=== PATIENT | male | born 1950 | race Caucasian/White ===

== ENCOUNTER → 2019-06-21 | Outpatient (CLI) | payer OTHER, MEDICARE ==
[~2019-06-21] MED LIST: ASA81BEC PO; GLUMETZA500 PO; LANTUSSOLASTAR SUBQ; MITIGARE0.6 MG PO; PRINIVIL5 MG PO; ROSUVASTATIN CA20 MG PO; SINGULAIR 10 MG10 M1 PO; ULORIC40 MG PO; VICTOZA 3-0.6 MG/0.1 SUBQ
== END ==
LOC: SJCVC 14:21
DX: Z01.810 Encounter for preprocedural cardiovascular examination (principal); R94.31 Abnormal electrocardiogram [ECG] [EKG]; I44.7 Left bundle-branch block, unspecified; I44.0 Atrioventricular block, first degree; E11.9 Type 2 diabetes mellitus without complications; J32.9 Chronic sinusitis, unspecified; E78.00 Pure hypercholesterolemia, unspecified; Z79.4 Long term (current) use of insulin; Z79.899 Other long term (current) drug therapy

== ENCOUNTER → 2019-06-30 | Outpatient (CLI) | payer OTHER, MEDICARE | END | disposition home or self-care (01) | LOC: SJCVCIMAG 07:32 | DX: Z01.810 Encounter for preprocedural cardiovascular examination (principal); I34.0 Nonrheumatic mitral (valve) insufficiency; I44.7 Left bundle-branch block, unspecified; I44.0 Atrioventricular block, first degree; E11.9 Type 2 diabetes mellitus without complications; Z79.899 Other long term (current) drug therapy; Z79.4 Long term (current) use of insulin ==

== ENCOUNTER 2019-07-05 07:56 | Inpatient (IN) | payer OTHER, MEDICARE ==
[~2019-07-05] VITALS: Ht 177.8 cm; Wt 97.5 kg
[2019-07-05 08:22] LABS: HEMATOCRIT 44.9 % (42.0-52.0); HEMOGLOBIN 14.7 gm/dL (14.0-18.0); MCH 30.1 pg (26.0-34.0); MCHC 32.7 g/dL (28.0-37.0); MCV 92.1 fL (80.0-100.0); PLATELET COUNT 255 thou/uL (150-400); RBC 4.87 mil/uL (4.50-6.00); RDW 13.4 % (10.5-14.5); WBC 6.1 thou/uL (4.0-11.0)
[2019-07-05 08:36] VITALS: BP 120/70
[2019-07-05 08:53] LABS: CHOLESTEROL 163 mg/dL (<200); HDL CHOLESTEROL 44 mg/dL (>40); LDL CHOLESTEROL 96 mg/dL (<100); TC:HDL 3.7 Ratio (Not establshd); TRIGLYCERIDE 117 mg/dL (<150); VLDL 23 mg/dL (<40)
[2019-07-05] MEDS ORDERED: MITIGARE0.6 MG PO (09:20)
[2019-07-05] MEDS ORDERED: ASA81BEC PO (09:21)
[2019-07-05] MEDS ORDERED: ULORIC40 MG PO (09:21)
[2019-07-05] MEDS ORDERED: LANTUSSOLASTAR SUBQ (09:24)
[2019-07-05] MEDS ORDERED: VICTOZA 3-0.6 MG/0.1 SUBQ (09:25)
[2019-07-05] MEDS ORDERED: PRINIVIL5 MG PO (09:26)
[2019-07-05] MEDS ORDERED: GLUMETZA500 PO (09:27)
[2019-07-05] MEDS ORDERED: SINGULAIR 10 MG10 M1 PO (09:27)
[2019-07-05] MEDS ORDERED: ROSUVASTATIN CA20 MG PO (09:28)
[2019-07-05 11:43] LABS: CALCIUM 9.1 mg/dL (8.5-10.1); CREATININE 1.3 mg/dL (0.7-1.3); POTASSIUM 4.8 mmol/L (3.5-5.1)
[2019-07-05 11:46] LABS: LYMPHOCYTES 37.1 % (24.0-44.0); MONOCYTES 8.4 % (1.0-8.0); POLYS 49.8 % (36.0-66.0)
[2019-07-05 11:47] LABS: BASOPHILS 0.5 % (0.0-2.0); EOSINOPHILS 4.2 % (0.0-3.0)
[2019-07-05 11:50] LABS: TOTAL BILIRUBIN 0.5 mg/dL (<0.1-1.0); TOTAL PROTEIN 7.6 g/dL (6.4-8.2)
[2019-07-05 11:55] LABS: APTT 26.9 Seconds (24.5-32.8); PROTIME 10.3 Seconds (9.3-11.4)
[2019-07-05 13:50] VITALS: BP 149/73
[2019-07-05 15:13] VITALS: BP 149/73
--- NOTE | 2019-07-05 15:29 | CATHLAB ---
[facility] [place] [address] INVASIVE PROCEDURE REPORT Name: MONICA ANDERSON Room #: 204-P ADM IN M.R.#: [id number] Admission: 07/05/19 Attend Phys: Ady Choi MD Discharge: Date of : 48 Report #: [id number] THIS REPORT FOR: cc: Lakia Ramirez MD, Stephanie M. MD Park, Jin S. MD ~ APPROVED REPORT Study performed: 07/05/2019 09:24:16 Patient Details Patient Status: Out-Patient Room #: The patient is a 69 year-old male Event Personnel Ady Choi [employer] Torque Tester, Larry Hodgson RN, Priya Salazar RTR, [employer] Monitor, Sravani Rome RTR Scrub Procedures Performed Art Access - R femoral artery* Left Heart Cath w/or w/o Coronaries 6648021 C 01128 Initial Mod Sed Same Phys/QHP Gr 516543 Hemostasis with Manual pressure 15182 Mod Sed Same Phys/QHP Ea 429328 Indication Positive stress test, Pre-op clearance Risk Factors Hypercholesterolemia, Hypertension, Diabetes Procedure Narrative The Right Groin^ was infiltrated with 1% Lidocaine subcutaneous anesthesia. A PINNACLE 4FR Sheath #[id number] sheath was inserted into the RFA^. Coronary angiography was performed using coronary diagnostic catheters. The right coronary system was accessed and visualized with a JR4 catheter. The left coronary system was accessed and visualized with a JL5 catheter. The left ventricle was accessed and visualized with a angled pigtail catheter. Left ventricular/Aortic Valve gradient assessed via catheter pullback. Left ventriculogram was performed in 30 degree projection. Hemostasis was obtained with manual pressure following sheath removal without any complications. The patient tolerated the procedure well and there were no complications associated with the procedure. There was no hematoma. [facility] [address] [place] [address] INVASIVE PROCEDURE REPORT Name: MONICAMONICA Room #: 204-P [facility] IN ..#: [id number] Admission: 07/05/19 Attend Phys: Ady Choi MD Discharge: Date of : 48 Report #: [id number] Intraoperative Conscious Sedation Sedation start time: 10:09 Case end Time: 10:42 Fentanyl 50 mcg Versed 2 mg Fluoro Time: 4.50 minutes Dose: DAP 6394 cGycm2 1538 mGy Contrast Type and Amount: Visipaque 105 ml Coronary Angiography The patient's coronary anatomy is co- dominant. Diagnostic Cath Left Main The left main artery is a large-caliber vessel with moderate disease distally, 50%. LAD There is a severe occlusion in the proximal/mid LAD, just after the takeoff of the first diagonal artery. There is a filling defect within the severe occlusion. After the stenosis, the mid and distal segments of the LAD is patent with no flow-limiting lesions. Diagonal 1 This is a moderate size caliber vessel with a severe proximal stenosis, 90%. Circumflex This is a codominant vessel with a severe occlusion at the ostium, 90%. Fills a moderate size OM vessel. There is a total occlusion in the mid left circumflex artery. OM1 This is a moderate size caliber vessel, patent with no flow-limiting lesion. OM2 This vessel is filled via bridging collaterals. Right Coronary There is a total occlusion in the proximal RCA. R PDA This vessel is filled via collateral circulation from the left coronary artery. Left Ventriculography The left ventricle is mildly dilated in size with decreased contractility. The left ventricular ejection fraction is estimated to be 40-45%. Left ventricular wall motion abnormalities are present. Hemodynamics The aortic pressure is 102/68 mmHg with a mean of 86 mmHg. The left ventricular pressure is 113/3 mmHg with a mean of mmHg. The left ventricular end diastolic pressure is 11 mmHg. Conclusion 1. Severe multivessel coronary artery disease. [facility] [address] [place] [address] INVASIVE PROCEDURE REPORT Name: MONICA ANDERSON Room #: 204-P [facility] IN .R.#: [id number] Admission: 07/05/19 Attend Phys: Ady Choi MD Discharge: Date of : 48 Report #: [id number] 2. Mild to moderate segmental LV dysfunction. 3. Recommend CV surgery consultation for CABG. <ELECTRONICALLY SIGNED> By: Ady Choi MD 07/05/19 1528 1528 1528 Ady Choi MD /INF
[2019-07-05 18:03] VITALS: BP 107/54
--- NOTE | 2019-07-05 18:19 | NUR ---
PT CARE ASSUMED APPROXIMATELY 1330. PT ASSESSMENTS CHARTED. PT ORIENTED TO HIS OWN ABILITY. PT DENIES PAIN.
[2019-07-05 20:12] VITALS: BP 114/58
[2019-07-05 20:20] LABS: URINE BILIRUBIN NEGATIVE (Negative); URINE BLOOD NEGATIVE (Negative); URINE CLARITY CLEAR; URINE COLOR YELLOW; URINE GLUCOSE-RANDOM* NEGATIVE (Negative); URINE KETONES NEGATIVE (Negative); URINE LEUKOCYTES-REFLEX NEGATIVE (Negative); URINE NITRITE-REFLEX NEGATIVE (Negative); URINE PROTEIN (DIPSTICK) NEGATIVE (Negative); URINE UROBILINOGEN 0.2 E.U./dl (0.2-1.0)
[2019-07-05 23:10] LABS: GLYCOHEMOGLOBIN (HGB A1C) 7.4 % (4.8-5.6)
[2019-07-06] VITALS (8 sets, daily range): BP systolic 103–135; BP diastolic 68–77
--- NOTE | 2019-07-06 04:38 | NUR ---
PT ALERT AND ORIENTED. DENIES CHEST PAIN,NAUSEA, VOMITING OR DIARRHEA. PT CONCERNED ABOUT HIS MEDICATION REGIMEN WHILE HERE AT THE HOSPITAL, AND WOULD LIKE MORE CLARIFICATION FROM THE DOCTORS. INDEPENDENT WITH AMBULATION, SR, WITH 1AVB, &BBB. NO OTHER ARRYTHMIAS NOTED. WILL CONTINUE TO FOLLOW POC AND PT AWAITS THE PENDING SURGERY.
[2019-07-06 05:52] LABS: HEMATOCRIT 39.5 % (42.0-52.0); MCH 30.1 pg (26.0-34.0); MCHC 32.9 g/dL (28.0-37.0); MCV 91.7 fL (80.0-100.0); RBC 4.31 mil/uL (4.50-6.00); RDW 13.4 % (10.5-14.5); WBC 6.2 thou/uL (4.0-11.0)
[2019-07-06 06:41] LABS: CALCIUM 8.6 mg/dL (8.5-10.1); CREATININE 1.3 mg/dL (0.7-1.3); POTASSIUM 4.3 mmol/L (3.5-5.1)
--- NOTE | 2019-07-06 08:15 | HC ---
[facility] [place] [address] CONSULTATION Name: MONICA ANDERSON Room #: 204-P [facility] IN M.R.#: [id number] Admission: 07/05/19 Attend Phys: Ady Choi MD Discharge: Date of : 48 Report #: [id number] THIS REPORT FOR: cc: Lakia Ramirez MD, Stephanie M. MD Forman, John M. MD ~ CC: Ady Ramirez DATE OF SERVICE: 07/05/2019 We were asked by Dr. Choi to see the patient. HISTORY OF PRESENT ILLNESS: The patient is a 69-year-old with coronary artery disease. The patient was scheduled for sinus surgery and preoperative evaluation included an EKG that showed a left bundle branch block. This led to a stress test at which the patient had an asystolic event and then cardiac catheterization that shows severe 3-vessel coronary artery disease, but good ventricular function. The patient denies such problems as angina or shortness of breath and claims that he is not sedentary and has had no symptoms. PAST MEDICAL HISTORY: Significant for diabetes mellitus and gout, for which the patient takes medication. ALLERGIES: None known. SOCIAL HISTORY: The patient is retired. He is not a smoker. REVIEW OF SYSTEMS: GENERAL: No fever or chills. EYES: Wears glasses. HEENT: Sinus problems as mentioned. RESPIRATORY: No shortness of breath. CARDIAC: No chest pain, no palpitations. We do note the asystolic event at the Lexiscan. GASTROINTESTINAL: No nausea, vomiting, blood. GENITOURINARY: No urgency, frequency, blood. MUSCULOSKELETAL: Has had back surgery in the past, but denies bone and joint discomfort. NEUROLOGIC: Left foot drop, status post back surgery. No new neurologic dysfunction. SKIN: No rash or infection. PSYCHIATRIC: No depression. ENDOCRINE: No goiter, no tremor. [facility] [address] [place] [address] CONSULTATION Name: MONICA ANDERSON Room #: 204-P [facility] IN [facility]#: [id number] Admission: 07/05/19 Attend Phys: Ady Choi MD Discharge: Date of : 48 Report #: [id number] PHYSICAL EXAMINATION: GENERAL: The patient is lying in bed, status post cardiac catheterization, sinus rhythm at 72, respiratory rate 16, afebrile. HEENT: No scleral icterus, no arcus. NECK: No mass, no bruit. CHEST: Clear to auscultation. HEART: Rhythm regular, no murmur. ABDOMEN: Soft, no mass, no tenderness. EXTREMITIES: We do note the chronic left toe drop with some atrophy on the left anterior compartment. No cyanosis, no edema. MUSCULOSKELETAL: No other obvious bone or joint asymmetry or deformity. NEUROLOGIC: No other motor or sensory dysfunction seen. PSYCHIATRIC: Oriented and appropriate, answers questions appropriately and shows insight into problem. Catheterization demonstrated severe 3-vessel disease and good ventricular function. We have recommended coronary artery bypass surgery. Risks of this include but are not limited to bleeding, infection, anesthesia risks, heart and lung problems, stroke and . Options and alternatives were reviewed. We will make arrangements for surgery on Thursday and in the interim, we will obtain the standard operative tests. Thank you for the consult. <ELECTRONICALLY SIGNED> By: Monica Temple MD 07/06/19 0815 1326 1352 Monica Temple MD /nt
--- NOTE | 2019-07-06 16:18 | NUR ---
rec report from RN patient to transfer to [facility] for CABG. Requested chart copy. Transfer form completed. RN sp with [employer] and gave report to Shawn. [facility] for 1714. Accepting phys Dr Cameron Castellon. no further needs. Shell signed emtalla.
--- NOTE | 2019-07-06 17:16 | NUR ---
PT CARE ASSUMED APPROX 0700. ASSESSMENTS CHARTED. PT DENIES PAIN AND SOA. VSS. UP WITH STEADY GAIT. PT TO TRANSFER TO THE [facility] TO PREVENT DELAY IN CABG. REPORT CALLED TO FLOOR NURSE GRETA. GRETA DENIED QUESTIONS OR CONCERNS REGARDING PT'S POC OR TRANSFER. TRANSFER FORM COMPLETED AND ORDERS OBTAINED. AMBULANCE TO TRANSPORT PT APPROX 1730 WITH 4HR WINDOW. WILL MONITOR PT UNTIL THEN. IV WILL BE MAINTAINED. NO DISTRESS NOTED.
--- NOTE | 2019-07-06 17:18 | NUR ---
PT CARE ASSUMED APPROXIMATELY 0700. PT ASSESSMENTS CHARTED. PT MEDICATIONS CHARTED. PT POST CATH RIGHT GROIN C/D/I. PT DENIES PAIN. PT TRANSFERRING TO [facility] FOR CABG SURGERY.
--- NOTE | 2019-07-06 17:53 | NUR ---
PT LEAVING UNIT AT THIS TIME WITH AMBULANCE. REPORTED THAT SHE HAD ALL PT'S BELONGINGS IN HER POSSESSION. RECEIVING NURSE NOTIFIED OF DEPARTURE.
== END 2019-07-06 17:55 | disposition short-term general hospital (02) | DRG 287 ==
LOC: CATH 07:56 → 2N 14:38
PROVIDERS: Internal Medicine Cardiovascular Disease; Surgery Vascular Surgery; ADMIT Hospitalist
PROC: B215YZZ Fluoroscopy of Left Heart using Other Contrast (ICD-10-PCS; principal; 2019-07-05)
PROC: 4A023N7 Measurement of Cardiac Sampling and Pressure, Left Heart, Percutaneous Approach (ICD-10-PCS; principal; 2019-07-05)
PROC: B211YZZ Fluoroscopy of Multiple Coronary Arteries using Other Contrast (ICD-10-PCS; principal; 2019-07-05)
DX: I25.10 Atherosclerotic heart disease of native coronary artery without angina pectoris (principal); I44.7 Left bundle-branch block, unspecified; E11.9 Type 2 diabetes mellitus without complications; M10.9 Gout, unspecified; I10 Essential (primary) hypertension; I05.9 Rheumatic mitral valve disease, unspecified; E78.5 Hyperlipidemia, unspecified; Z82.49 Family history of ischemic heart disease and other diseases of the circulatory system; Z79.82 Long term (current) use of aspirin; Z79.84 Long term (current) use of oral hypoglycemic drugs; Z79.4 Long term (current) use of insulin; Z79.899 Other long term (current) drug therapy
CPT/HCPCS: 10081

== ENCOUNTER → 2019-07-22 | Outpatient (CLI) | payer OTHER, MEDICARE | LOC: SJCVC 09:19 | DX: I44.0 Atrioventricular block, first degree (principal); I44.7 Left bundle-branch block, unspecified; R94.31 Abnormal electrocardiogram [ECG] [EKG]; I25.10 Atherosclerotic heart disease of native coronary artery without angina pectoris; E78.00 Pure hypercholesterolemia, unspecified; I10 Essential (primary) hypertension; E11.9 Type 2 diabetes mellitus without complications; Z95.1 Presence of aortocoronary bypass graft; Z79.899 Other long term (current) drug therapy ==

== ENCOUNTER → 2019-08-23 | Outpatient (CLI) | payer OTHER, MEDICARE | LOC: SJCVCIMAG 08:07 | DX: R94.31 Abnormal electrocardiogram [ECG] [EKG] (principal); I45.4 Nonspecific intraventricular block; I44.0 Atrioventricular block, first degree; I08.1 Rheumatic disorders of both mitral and tricuspid valves; I44.7 Left bundle-branch block, unspecified; I25.10 Atherosclerotic heart disease of native coronary artery without angina pectoris; I10 Essential (primary) hypertension; E78.00 Pure hypercholesterolemia, unspecified; E78.5 Hyperlipidemia, unspecified; Z95.1 Presence of aortocoronary bypass graft ==

== ENCOUNTER → 2020-02-23 | Outpatient (CLI) | payer OTHER, MEDICARE | LOC: SJCVC 10:07 | PROVIDERS: ATTEND Internal Medicine Cardiovascular Disease | DX: I44.0 Atrioventricular block, first degree (principal); I44.7 Left bundle-branch block, unspecified; E78.00 Pure hypercholesterolemia, unspecified; I25.10 Atherosclerotic heart disease of native coronary artery without angina pectoris; I95.1 Orthostatic hypotension; E11.9 Type 2 diabetes mellitus without complications; R94.31 Abnormal electrocardiogram [ECG] [EKG]; Z95.1 Presence of aortocoronary bypass graft ==

== ENCOUNTER → 2020-04-02 | Outpatient (CLI) | payer OTHER, MEDICARE | LOC: LAB 15:00 | PROVIDERS: ATTEND Internal Medicine Cardiovascular Disease | DX: Z01.812 Encounter for preprocedural laboratory examination (principal); Z20.828 Contact with and (suspected) exposure to other viral communicable diseases ==

== ENCOUNTER → 2020-04-02 | Outpatient (CLI) | payer OTHER, MEDICARE ==
[~2020-04-02] MED LIST changes: +BASAGLAR K100 UNIT/1 SUBQ; +CRESTOR40 MG PO; +LISINOPRIL2.5 MG PO; +METFORMIN HCL500 MG PO; +OCUVITE ADULT1 EAC1 PO; +ONE-A-DAY MEN'1 EAC5 PO
== END ==
LOC: SJCVC 13:50
PROVIDERS: ATTEND Internal Medicine Cardiovascular Disease
DX: R94.31 Abnormal electrocardiogram [ECG] [EKG] (principal); I44.0 Atrioventricular block, first degree; I44.7 Left bundle-branch block, unspecified; I25.10 Atherosclerotic heart disease of native coronary artery without angina pectoris; E11.9 Type 2 diabetes mellitus without complications; Z95.1 Presence of aortocoronary bypass graft; Z79.899 Other long term (current) drug therapy

== ENCOUNTER → 2020-04-03 | Outpatient (CLI) | payer OTHER, MEDICARE | LOC: SJCVCIMAG 07:17 | PROVIDERS: ATTEND Internal Medicine Cardiovascular Disease | DX: I07.1 Rheumatic tricuspid insufficiency (principal); I25.10 Atherosclerotic heart disease of native coronary artery without angina pectoris; I44.7 Left bundle-branch block, unspecified; Z95.1 Presence of aortocoronary bypass graft; Z79.899 Other long term (current) drug therapy ==

== ENCOUNTER 2020-04-04 09:30 | Observation (INO) | payer OTHER, MEDICARE ==
[~2020-04-04] VITALS: Ht 177.8 cm; Wt 103.0 kg
[2020-04-04] VITALS (12 sets, daily range): BP systolic 106–146; BP diastolic 67–84
[~2020-04-04 09:30] MED LIST changes: -BASAGLAR K100 UNIT/1 SUBQ; -CRESTOR40 MG PO; -LISINOPRIL2.5 MG PO; -METFORMIN HCL500 MG PO; -OCUVITE ADULT1 EAC1 PO; -ONE-A-DAY MEN'1 EAC5 PO
[2020-04-04 10:35] LABS: ABSOLUTE NEUTROPHILS 3.5 thou/uL (1.4-8.2); BASOPHILS 0.6 % (0.0-2.0); HEMATOCRIT 44.4 % (42.0-52.0); HEMOGLOBIN 14.9 gm/dL (14.0-18.0); LYMPHOCYTES 30.9 % (24.0-44.0); MCHC 33.6 g/dL (28.0-37.0); MCV 92.3 fL (80.0-100.0); MONOCYTES 7.9 % (1.0-8.0); PLATELET COUNT 180 thou/uL (150-400); POLYS 56.6 % (36.0-66.0); RBC 4.81 mil/uL (4.50-6.00); WBC 6.2 thou/uL (4.0-11.0)
[2020-04-04 10:48] LABS: APTT 23.8 Seconds (24.5-32.8); PROTIME 10.1 Seconds (9.3-11.4)
[2020-04-04 10:49] LABS: CALCIUM 8.8 mg/dL (8.5-10.1); CREATININE 1.5 mg/dL (0.7-1.3); POTASSIUM 4.6 mmol/L (3.5-5.1)
[2020-04-04 10:51] LABS: ALBUMIN 3.9 g/dL (3.4-5.0); TOTAL BILIRUBIN 0.4 mg/dL (0.2-1.0); TOTAL PROTEIN 7.3 g/dL (6.4-8.2)
[2020-04-04] MEDS ORDERED: METFORMIN HCL500 MG PO (11:02)
[2020-04-04] MEDS ORDERED: LISINOPRIL2.5 MG PO (11:03)
[2020-04-04] MEDS ORDERED: CRESTOR40 MG PO (11:04)
[2020-04-04] MEDS ORDERED: BASAGLAR K100 UNIT/1 SUBQ (11:07)
[2020-04-04] MEDS ORDERED: ONE-A-DAY MEN'1 EAC5 PO (11:08)
[2020-04-04] MEDS ORDERED: OCUVITE ADULT1 EAC1 PO (11:08)
[2020-04-05 00:05] VITALS: BP 109/63
[2020-04-05 00:30] VITALS: BP 109/63
[2020-04-05 04:30] VITALS: BP 129/67
[2020-04-05 04:45] VITALS: BP 129/67
[2020-04-05 06:32] LABS: CALCIUM 8.9 mg/dL (8.5-10.1); CREATININE 1.4 mg/dL (0.7-1.3); POTASSIUM 4.4 mmol/L (3.5-5.1)
[2020-04-05 07:20] VITALS: BP 126/59
--- NOTE | 2020-04-05 08:07 | NUR ---
SLEPT PART OF SHIFT. STATES DIDNT SLEEP WELL. CATH CHECKS STABLE. REMAINS ON BEDREST UNTIL CHEST XRAY. DENIES NEED FOR PAIN MEDICATION. WORKING ON GOALS AND PLAN OF CARE FOR NOC. CONTINUE TO ASSES CLOSELY.
[2020-04-05 11:12] VITALS: BP 126/59
--- NOTE | 2020-04-05 11:34 | NUR ---
ASSUMED CARE OF PATIENT AT 0700; AOX4/VSS/ASSESSMENTS CHARTED; PACEMAKER INCISION C/D/I WITH NO HEMATOMA OR C/O OF PAIN; PATIENT GIVEN DISCHARGE PAPERWORK INCLUDING PACEMAKER INSTRUCTIONS/ DOCUMENTS SIGNED/ PATIENT ESCORTED OFF THE UNIT IN WHEELCHAIR BY HEALTHCARE STAFF AND ACCOMPANIED BY SPOUSE; PATIENT AND SPOUSE VERBALIZED UNDERSTANDING OF DISCHARGE INSTRUCTIONS.
--- NOTE | 2020-04-09 13:30 | P ---
[facility] [place] [address] PROCEDURE REPORT Name: MONICA ANDERSON Room #: 211-P [facility] Shanelle Velásquez#: [id number] Admission: 04/04/20 Attend Phys: Som Bocanegra MD Discharge: 04/05/20 Date of : 48 Report #: [id number] THIS REPORT FOR: cc: Lakia Ramirez MD, Stephanie M. MD Couchonnal, Luis F. MD ~ CC: Som Ramirez DATE OF SERVICE: 04/04/2020 EP STUDY AND PACEMAKER IMPLANTATION PREOPERATIVE DIAGNOSES: 1. Syncope. 2. Left bundle branch block. 3. Coronary artery disease, status post CABG. PROCEDURES PERFORMED: 1. Comprehensive EP studies, CPT code 66606. 2. EP with left atrial pacing and recording, CPT code 20782. 3. Dual chamber pacemaker implantation. HISTORY: The patient is a 70-year-old male with a history of coronary artery disease, status post recent CABG in July with a known left bundle branch block who had a syncopal episode at home. He has a known left bundle-branch block. He has an ejection fraction of 45-50%. He is here for EP study and possible pacemaker, possible ICD, possible implantable loop recorder. ANESTHESIA: The patient underwent MAC anesthesia with no anesthesia related complications. DESCRIPTION OF PROCEDURE: The patient underwent informed consent. We discussed the details of the procedure including the risks, which include but not limited to bleeding, infection, vascular damage, cardiac perforation and pneumothorax. He understood these risks and is willing to proceed. The patient was brought to EP laboratory in fasting and sedated state, prepped and draped in a sterile fashion. I obtained access to the right femoral vein x 3, placing 3 quadripolar catheters at the HRA, His and RV positions. At baseline, the patient was in sinus rhythm with sinus cycle length of 800 milliseconds, NJ interval 300 milliseconds, QRS duration of 160 milliseconds with a left bundle branch block, QT interval 450 milliseconds, AH interval 168 milliseconds and HV interval of 82 milliseconds. Atrial burst pacing was performed and AV block was noted at 570 milliseconds. Ventricular ERP was performed and V ERP was noted at 240 milliseconds at a 500 millisecond basic [facility] [address] [place] [address] PROCEDURE REPORT Name: MONICA ANDERSON Room #: 211-P [facility]..#: [id number] Admission: 04/04/20 Attend Phys: Som Bocanegra MD Discharge: 04/05/20 Date of : 48 Report #: [id number] cycle length and V ERP was noted at 240 milliseconds at [address] cycle length. Next, ventricular stimulation was performed at both [address] cycle length with triple extrastimuli with no evidence of inducible sustained ventricular tachycardia. As such, the patient was prepped for pacemaker implantation. The patient underwent a venography showing patency of the left axillary vein and received IV antibiotics. Next, an incision was made and pocket was created over the prepectoral fascia and access was obtained 3 times to left axillary vein. An atrial lead and RV lead were positioned into the atrium and right ventricle with adequate pacing and sensing thresholds. Leads were sutured to the prepectoral fascia. Next, a coronary guide sheath was placed in the coronary sinus and I got into the CS quickly and a formal venogram was performed, which showed that he had a single very small posterior lateral branch with a rivers's hook. There were no anterior lateral branches and there was an atretic middle cardiac vein that was also small in caliber. Initially, I tried to see if I could find an anterolateral branch and this was unsuccessful. I did this with a Medtronic lead and wire and then I placed a guide sheath up and attempted to get into the posterolateral branch. I was able to get a wire into this branch, but the lead would not deliver given its rivers's hook tortuosity and very small caliber vessel. I also attempted to see if there was a potential middle cardiac vein, but when I got a wire into this branch, it did not have a good distal target. After attempting again into this posterior lateral branch with a rivers's hook, despite my best efforts, I could not advance the lead into this. As such, attempts with LV lead were aborted and sheaths were pulled and a dual chamber pacemaker was implanted. The leads were connected to the device. The pocket was irrigated with vancomycin. Pocket was closed in 2 layers and surgical glue was placed to outer skin layer. The patient awoke neurologically and hemodynamically intact. No complications and no significant bleeding. The implanted pacemaker was a Medtronic model number [id number], serial #[id number]. Atrial lead was a 5076, 52 cm, serial #[id number]. RV lead was a 5076, 58 cm, serial #[id number]. Atrial lead demonstrated a P-wave of 1.3 millivolts, pacing impedance of 588 ohms, pacing threshold 0.4 volts at 0.5 milliseconds. RV lead demonstrated R waves of 6 millivolts, pacing impedance of 724 ohms and pacing threshold 0.5 volts at 0.5 milliseconds. The device was programmed to the MVP mode 60-130. CONCLUSIONS: 1. Diagnostic EP study showing severe infra-Hisian disease. 2. Satisfactory dual-chamber pacemaker implantation. <ELECTRONICALLY SIGNED> By: Som Bocanegra MD 04/09/20 1330 1001 0243 Som Bocanegra MD /nt
== END 2020-04-05 11:38 | disposition home or self-care (01) ==
LOC: CATH 09:30 → 2N 15:48
PROVIDERS: ADMIT Internal Medicine Cardiovascular Disease; ATTEND Internal Medicine Cardiovascular Disease
DX: R55 Syncope and collapse (principal); I44.7 Left bundle-branch block, unspecified; I25.10 Atherosclerotic heart disease of native coronary artery without angina pectoris; E11.9 Type 2 diabetes mellitus without complications; E78.5 Hyperlipidemia, unspecified; Z79.899 Other long term (current) drug therapy
CPT/HCPCS: 62110; 62900; 70005

== ENCOUNTER → 2020-07-10 | Outpatient (CLI) | payer OTHER, MEDICARE ==
[~2020-07-10] MED LIST changes: +BASAGLAR K100 UNIT/1 SUBQ; +CRESTOR40 MG PO; +LISINOPRIL2.5 MG PO; +METFORMIN HCL500 MG PO; +OCUVITE ADULT1 EAC1 PO; +ONE-A-DAY MEN'1 EAC5 PO
== END ==
LOC: SJCVC 09:10
PROVIDERS: ATTEND Internal Medicine Cardiovascular Disease
DX: R94.31 Abnormal electrocardiogram [ECG] [EKG] (principal); I44.0 Atrioventricular block, first degree; I44.7 Left bundle-branch block, unspecified; I25.10 Atherosclerotic heart disease of native coronary artery without angina pectoris; R55 Syncope and collapse; E11.9 Type 2 diabetes mellitus without complications; E78.5 Hyperlipidemia, unspecified; Z88.8 Allergy status to other drugs, medicaments and biological substances; Z79.82 Long term (current) use of aspirin; Z95.0 Presence of cardiac pacemaker; Z79.84 Long term (current) use of oral hypoglycemic drugs; Z79.899 Other long term (current) drug therapy; Z95.1 Presence of aortocoronary bypass graft; Z98.890 Other specified postprocedural states

== ENCOUNTER → 2020-08-23 | Outpatient (CLI) | payer OTHER, MEDICARE | LOC: SJCVCIMAG 08:35 | PROVIDERS: ATTEND Internal Medicine Cardiovascular Disease | DX: I49.3 Ventricular premature depolarization (principal); I25.10 Atherosclerotic heart disease of native coronary artery without angina pectoris; E11.9 Type 2 diabetes mellitus without complications; I44.7 Left bundle-branch block, unspecified; R53.83 Other fatigue; R55 Syncope and collapse; E78.00 Pure hypercholesterolemia, unspecified; J32.2 Chronic ethmoidal sinusitis; J32.1 Chronic frontal sinusitis; J32.0 Chronic maxillary sinusitis; Z95.0 Presence of cardiac pacemaker; Z79.4 Long term (current) use of insulin; Z79.82 Long term (current) use of aspirin; Z72.89 Other problems related to lifestyle ==

== ENCOUNTER → 2021-03-14 | Outpatient (CLI) | payer OTHER, MEDICARE | LOC: SJCVC 09:48 | PROVIDERS: ATTEND Internal Medicine Cardiovascular Disease | DX: R94.31 Abnormal electrocardiogram [ECG] [EKG] (principal); I44.7 Left bundle-branch block, unspecified; I44.0 Atrioventricular block, first degree; I25.10 Atherosclerotic heart disease of native coronary artery without angina pectoris; I95.1 Orthostatic hypotension; E78.00 Pure hypercholesterolemia, unspecified; H83.09 Labyrinthitis, unspecified ear; J32.2 Chronic ethmoidal sinusitis; J32.1 Chronic frontal sinusitis; J32.0 Chronic maxillary sinusitis; I65.29 Occlusion and stenosis of unspecified carotid artery; E11.9 Type 2 diabetes mellitus without complications; E78.5 Hyperlipidemia, unspecified; H90.5 Unspecified sensorineural hearing loss; Z72.89 Other problems related to lifestyle; Z79.82 Long term (current) use of aspirin; Z79.84 Long term (current) use of oral hypoglycemic drugs; Z79.899 Other long term (current) drug therapy; Z91.018 Allergy to other foods ==

== ENCOUNTER → 2021-07-09 | Outpatient (CLI) | payer OTHER, MEDICARE | LOC: SJCVC 09:54 | PROVIDERS: ATTEND Internal Medicine Cardiovascular Disease | DX: R94.31 Abnormal electrocardiogram [ECG] [EKG] (principal); I44.0 Atrioventricular block, first degree; I45.4 Nonspecific intraventricular block; I44.7 Left bundle-branch block, unspecified; R55 Syncope and collapse; E78.5 Hyperlipidemia, unspecified; I25.10 Atherosclerotic heart disease of native coronary artery without angina pectoris; J32.0 Chronic maxillary sinusitis; E11.9 Type 2 diabetes mellitus without complications; Z95.0 Presence of cardiac pacemaker; Z95.1 Presence of aortocoronary bypass graft; Z91.018 Allergy to other foods; Z79.899 Other long term (current) drug therapy; Z79.4 Long term (current) use of insulin; Z72.89 Other problems related to lifestyle ==